=== PATIENT | female | born 1955 | race Caucasian/White ===

== ENCOUNTER 2020-08-13 08:24 | Outpatient (REF) | payer BC, MEDICARE, SELFPAY | END 2020-08-13 08:25 | disposition home or self-care (01) | LOC: HO.LAB 08:24 | PROVIDERS: PCP Internal Medicine Medical Oncology; Visit Provider Internal Medicine Medical Oncology | DX: Z20.828 Contact with and (suspected) exposure to other viral communicable diseases (principal) | CPT/HCPCS: C9803; U0003 ==

== ENCOUNTER 2022-03-27 09:06 | Outpatient (REF) | payer BC, MEDICARE, SELFPAY ==
--- NOTE | ~2022-03-27 | MR_ITS ---
MRI OF THE BRAIN WITH AND WITHOUT IV CONTRAST MRI OF THE ORBITS WITH AND WITHOUT IV CONTRAST MRA OF THE BRAIN WITHOUT IV CONTRAST MRV OF THE BRAIN WITHOUT IV CONTRAST INDICATION: Headache. 4th nerve palsy. COMPARISON: MRA head 02/11/2019 and MRI brain 01/28/2019. TECHNIQUE: Multiplanar multisequence MR imaging of the brain and orbits obtained without and following the administration of 5 mL of Gadavist without complication. Additionally, a noncontrast [id number] MRA and MRV of the head are obtained. Vascular post-processing, including 2-dimensional and 3-dimensional reformatted images were created and reviewed on an independent workstation under concurrent physician supervision. Stenoses are graded per criteria similar to NASCET. FINDINGS: BRAIN MRI: The previously identified tubular nodular focus of enhancement within the left paramesencephalic cistern I suspect most likely reflects a vein which is smaller in size on the current exam. No true enhancing mass lesions are identified. There is mild to moderate chronic microangiopathy. There is no hydrocephalus, extra-axial surface collection, or herniation. The major flow voids at the skull base are preserved. There is no acute infarct on diffusion-weighted imaging. There is no intracranial hemorrhage on the gradient recalled echo acquisition. The midline structures are normal. The cerebellar tonsils are normally positioned. The cerebellum and brainstem are normal. The craniocervical junction is normal. Osseous marrow signal intensity is homogenous. The imaged soft tissues including orbital soft tissues are normal. No pathologic enhancement or signal within the optic nerves. No intraorbital mass lesions. 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 No new aneurysms. No significant arterial stenoses in no acute arterial occlusions intracranially. HEAD MRV: Superficial and deep venous systems remain widely patent. There is no venous thrombosis. Hypoplastic left venous system. MR/MR head/brain wo/w con IMPRESSION: - The previously identified tubular nodular focus of enhancement within the left paramesencephalic cistern I suspect most likely reflects a vein which is smaller in size on the current exam. As on the previous study is not seen on the noncontrast MRA of the head and therefore is felt to not reflect an aneurysm. No true enhancing mass lesions are identified. There is mild to moderate chronic microangiopathy. 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
--- NOTE | ~2022-03-27 | MR_ITS ---
MRI OF THE BRAIN WITH AND WITHOUT IV CONTRAST MRI OF THE ORBITS WITH AND WITHOUT IV CONTRAST MRA OF THE BRAIN WITHOUT IV CONTRAST MRV OF THE BRAIN WITHOUT IV CONTRAST INDICATION: Headache. 4th nerve palsy. COMPARISON: MRA head 02/11/2019 and MRI brain 01/28/2019. TECHNIQUE: Multiplanar multisequence MR imaging of the brain and orbits obtained without and following the administration of 5 mL of Gadavist without complication. Additionally, a noncontrast [id number] MRA and MRV of the head are obtained. Vascular post-processing, including 2-dimensional and 3-dimensional reformatted images were created and reviewed on an independent workstation under concurrent physician supervision. Stenoses are graded per criteria similar to NASCET. FINDINGS: BRAIN MRI: The previously identified tubular nodular focus of enhancement within the left paramesencephalic cistern I suspect most likely reflects a vein which is smaller in size on the current exam. No true enhancing mass lesions are identified. There is mild to moderate chronic microangiopathy. There is no hydrocephalus, extra-axial surface collection, or herniation. The major flow voids at the skull base are preserved. There is no acute infarct on diffusion-weighted imaging. There is no intracranial hemorrhage on the gradient recalled echo acquisition. The midline structures are normal. The cerebellar tonsils are normally positioned. The cerebellum and brainstem are normal. The craniocervical junction is normal. Osseous marrow signal intensity is homogenous. The imaged soft tissues including orbital soft tissues are normal. No pathologic enhancement or signal within the optic nerves. No intraorbital mass lesions. 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 No new aneurysms. No significant arterial stenoses in no acute arterial occlusions intracranially. HEAD MRV: Superficial and deep venous systems remain widely patent. There is no venous thrombosis. Hypoplastic left venous system. MR/MR angio head wo con IMPRESSION: - The previously identified tubular nodular focus of enhancement within the left paramesencephalic cistern I suspect most likely reflects a vein which is smaller in size on the current exam. As on the previous study is not seen on the noncontrast MRA of the head and therefore is felt to not reflect an aneurysm. No true enhancing mass lesions are identified. There is mild to moderate chronic microangiopathy. 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
--- NOTE | ~2022-03-27 | MR_ITS ---
MRI OF THE BRAIN WITH AND WITHOUT IV CONTRAST MRI OF THE ORBITS WITH AND WITHOUT IV CONTRAST MRA OF THE BRAIN WITHOUT IV CONTRAST MRV OF THE BRAIN WITHOUT IV CONTRAST INDICATION: Headache. 4th nerve palsy. COMPARISON: MRA head 02/11/2019 and MRI brain 01/28/2019. TECHNIQUE: Multiplanar multisequence MR imaging of the brain and orbits obtained without and following the administration of 5 mL of Gadavist without complication. Additionally, a noncontrast [id number] MRA and MRV of the head are obtained. Vascular post-processing, including 2-dimensional and 3-dimensional reformatted images were created and reviewed on an independent workstation under concurrent physician supervision. Stenoses are graded per criteria similar to NASCET. FINDINGS: BRAIN MRI: The previously identified tubular nodular focus of enhancement within the left paramesencephalic cistern I suspect most likely reflects a vein which is smaller in size on the current exam. No true enhancing mass lesions are identified. There is mild to moderate chronic microangiopathy. There is no hydrocephalus, extra-axial surface collection, or herniation. The major flow voids at the skull base are preserved. There is no acute infarct on diffusion-weighted imaging. There is no intracranial hemorrhage on the gradient recalled echo acquisition. The midline structures are normal. The cerebellar tonsils are normally positioned. The cerebellum and brainstem are normal. The craniocervical junction is normal. Osseous marrow signal intensity is homogenous. The imaged soft tissues including orbital soft tissues are normal. No pathologic enhancement or signal within the optic nerves. No intraorbital mass lesions. 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 No new aneurysms. No significant arterial stenoses in no acute arterial occlusions intracranially. HEAD MRV: Superficial and deep venous systems remain widely patent. There is no venous thrombosis. Hypoplastic left venous system. MR/MR orbits face neck wo/w con IMPRESSION: - The previously identified tubular nodular focus of enhancement within the left paramesencephalic cistern I suspect most likely reflects a vein which is smaller in size on the current exam. As on the previous study is not seen on the noncontrast MRA of the head and therefore is felt to not reflect an aneurysm. No true enhancing mass lesions are identified. There is mild to moderate chronic microangiopathy. 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
== END 2022-03-27 09:07 | disposition home or self-care (01) ==
LOC: HO.MRI 09:06
PROVIDERS: Visit Provider Psychiatry & Neurology Neurology
DX: H49.10 Fourth [trochlear] nerve palsy, unspecified eye (principal); I67.1 Cerebral aneurysm, nonruptured
CPT/HCPCS: 70543; 70544; 70553; A9585

== ENCOUNTER 2023-09-03 08:53 | Outpatient (REF) | payer BC, SELFPAY | END 2023-09-03 08:54 | disposition home or self-care (01) | LOC: HO.CT 08:53 | PROVIDERS: PCP Internal Medicine Medical Oncology; Visit Provider Internal Medicine Medical Oncology | DX: R91.1 Solitary pulmonary nodule (principal) | CPT/HCPCS: 71260; 82565; Q9967 ==

== ENCOUNTER 2024-02-24 16:22 | Outpatient (REF) | payer BC, SELFPAY ==
[2024-02-24 17:50] LABS: Appearance Urine Clear; Color Urine Dark Yellow; Glucose Urine UA Negative (Negative); Leukocyte Esterase Urine Small (1+) (Negative); Nitrite Urine Positive (Negative); Specific Gravity - Urine 1.025 (1.005-1.025); UMIC TRIGGER UA YES; Urine Blood Negative (Negative); Urine Ketones Negative (Negative); Urine Protein Trace mg/dL (Neg-Trace)
[2024-02-24 18:05] LABS: Bacteria Urine None Seen (None Seen); Hyaline Casts Urine 0-2 /LPF (0-2); RBC Urine 0-2 /HPF (0-2); Squamous Epithelial Cell Urine 0-2 /HPF (0-2); WBC Urine 0-5 /HPF (0-5)
== END 2024-02-24 16:23 | disposition home or self-care (01) ==
LOC: HO.LAB 16:22
PROVIDERS: PCP Internal Medicine Medical Oncology; Visit Provider Internal Medicine Medical Oncology
DX: R39.9 Unspecified symptoms and signs involving the genitourinary system (principal)
CPT/HCPCS: 81001; 87086

== ENCOUNTER 2024-10-07 09:22 | Emergency (ER) | payer BC, SELFPAY ==
--- NOTE | ~2024-10-07 | CT_ITS ---
EXAMINATION: CT HEAD WITHOUT CONTRAST (STROKE PROTOCOL) CLINICAL INFORMATION: Stroke protocol. Facial droop. Weakness. COMPARISON: December 23, 2018 TECHNIQUE: Contiguous axial imaging was performed from the skull base to vertex without intravenous administration of contrast. This CT examination was performed using dose optimization techniques as appropriate, variously including the following: *Automated exposure control *Adjustment of mA and/or kV according to patient size (this includes techniques or standardized protocols for targeted exams where dose is matched to indication/reason for exam; i.e. extremities or head) *Use of iterative reconstruction technique DLP: 676 mGy centimeter. FINDINGS: No acute intracranial hemorrhage, mass effect, midline shift, hydrocephalus or herniation. Bilateral multifocal patchy and confluent deep periventricular white matter hypodensities involving centrum semiovale and christianson radiata both hemispheres and questionable in the arline. Old lacunar infarcts in the basal ganglia and extracapsular. Calcified plaques in the V4 segments of the vertebral arteries and cavernous supraclinoid segments both ICA. Retention cysts versus polyp in the left maxillary sinus, medial wall near the ostiomeatal complex. Tympanic cavities and mastoid air cells are aerated. CT/CT head for STROKE IMPRESSION: No acute intracranial hemorrhage. White matter disease likely related to small vessel occlusive disease. Superimposed acute stroke/nonhemorrhagic ischemia cannot be excluded. This critical result was discussed with the emergency physician Dr. Stanley Flores at 9:30 AM hours on October 07, 2024.. It was ascertained that the content and urgency of the report was understood at the time of direct communication. Electronically signed by: Lui Landa MD 10/07/2024 09:41 AM [facility]
--- NOTE | ~2024-10-07 | XR_ITS ---
EXAMINATION: XR CHEST CLINICAL INFORMATION: Weakness, rule out pneumonia COMPARISON: CT chest 09/03/2023 TECHNIQUE: Frontal view of the chest was obtained. FINDINGS: Cardiac, hilar, and mediastinal contours are normal. Lungs are clear bilaterally. Mild biapical scarring is noted. No effusion or pneumothorax. No focal osseous or soft tissue abnormalities. XR/XR chest 1V IMPRESSION: No active pulmonary disease. Electronically signed by: Kael Muniz MD 10/07/2024 10:36 AM [facility]
--- NOTE | ~2024-10-07 | CT_ITS ---
EXAMINATION: CT HEAD NECK ANGIOGRAPHY WITH IV CONTRAST STROKE HISTORY: Weakness, facial droop, rule out clot COMPARISON: Correlation is made with the unenhanced head CT performed immediately prior and with an MR angiogram of the head and neck dated 03/27/2022. TECHNIQUE: Helical axial images were obtained from the aortic arch to the vertex after intravenous injection of contrast per standard departmental protocol. MIP/3D reconstructions were obtained and reviewed. One or more of the following techniques was used for dose reduction: Automated exposure control, adjustment of the mA and/or kV according to patient size, use of iterative reconstruction technique. DLP: 694 mGy-cm FINDINGS: CTA NECK: AORTIC ARCH: The visualized portions of the arch as well as innominate, right subclavian, and left subclavian arteries show no hemodynamically significant stenosis. Right common carotid artery: There is no large vessel occlusion or hemodynamically significant stenosis. Right internal carotid artery: There is calcified and noncalcified plaque at the carotid bulb. There is no large vessel occlusion or hemodynamically significant stenosis. Left common carotid artery: There is no large vessel occlusion or hemodynamically significant stenosis. Left internal carotid artery: There is no large vessel occlusion or hemodynamically significant stenosis. (Extracranial internal carotid artery stenosis estimates are based on use of distal ICA as the denominator.) Right vertebral artery: There is no large vessel occlusion or hemodynamically significant stenosis. Left vertebral artery: There is marked calcification of the distal left vertebral artery at the skull base. A significant stenosis is not excluded. Additional narrowing is seen at the level of the medulla. CTA HEAD: Right intracranial ICA: There is no large vessel occlusion, hemodynamically significant stenosis, or aneurysm. Right STUART: There is no large vessel occlusion, hemodynamically significant stenosis, or aneurysm. Right MCA: There is no large vessel occlusion, hemodynamically significant stenosis, or aneurysm. Left intracranial ICA: There is no large vessel occlusion, hemodynamically significant stenosis, or aneurysm. Left STUART: There is no large vessel occlusion, hemodynamically significant stenosis, or aneurysm. Left MCA: There is no large vessel occlusion, hemodynamically significant stenosis, or aneurysm. Basilar artery: There is no large vessel occlusion, hemodynamically significant stenosis, or aneurysm. Superior cerebellar arteries: There is no large vessel occlusion, hemodynamically significant stenosis, or aneurysm. Right CUSTOMER SERVICE SALES ASSOCIATE: There is no large vessel occlusion, hemodynamically significant stenosis, or aneurysm. Left CUST[employer]ER SERVICE SALES ASSOCIATE: There is no large vessel occlusion, hemodynamically significant stenosis, or aneurysm. VEINS: Venous enhancement is within normal limits for this technique. SOFT TISSUES: The bilateral parotid, submandibular, and thyroid glands are unremarkable. No laryngeal abnormality is identified. There is no cervical lymphadenopathy. CT/CT angio head neck STROKE IMPRESSION: Marked calcification of the distal left vertebral artery. Significant stenosis in this region cannot be excluded. Otherwise, no large vessel occlusion, hemodynamically significant stenosis, or aneurysm in the head and neck. Electronically signed by: Des Washington MD 10/07/2024 10:06 AM [facility]
[2024-10-07 09:22] VITALS: BMI 21.5
--- NOTE | 2024-10-07 09:27 | ED.WEAKNESS ---
HPI - Weakness General Chief complaint: Stroke Stated complaint: STROKE ALERT PER EMS Time Seen by Provider: 10/07/24 09:27 Source: patient and EMS Mode of arrival: EMS Limitations: no limitations History of Present Illness ED Provider: Dr. Stanley Flores HPI Narrative: 68-year-old female with a history hypertension, brain tumor, left posterior vertebral artery stenosis with possible clots who presents emergency department for evaluation of dizziness, nausea, vomiting, weakness. Patient states that she became ill last night when she developed a ?chest cold . Patient states that since last night she was had fever, chills, nonproductive cough, shortness of breath, dyspnea on exertion, nausea, vomiting x2 with no diarrhea. She states she was feeling weak this morning but did go to work. According to the paramedics the patient went to the bathroom since she had dizziness and nausea. She was then found lying on the bathroom floor by coworkers. Paramedics thought that the patient may have had a left facial droop and the patient was brought to emergency department as a stroke alert. I initially evaluated the patient on the senior linux systems engineer stretcher. The patient has generalized weakness. She was slow to answer questions but does answer them appropriately. She was oriented to person, place, knew the month and her age. The patient's , Cristi is here in the emergency department and he states that he just got over the flu.Yet the likes to read it Related Data Previous Rx's ?Medication ?Instructions ?Recorded ondansetron 4 mg disintegrating 4 mg PO Q6-8H PRN nausea and 10/07/24 tablet vomiting #14 tabs oseltamivir 75 mg capsule (Tamiflu) 75 mg PO Q12H 5 days #10 caps 10/07/24 Allergies Allergy/AdvReac Type Severity Reaction Status Date / Time meperidine [From DEMEROL] Allergy Intermediate VOMIT Verified 10/07/24 09:41 Review of Systems Review of Systems: Yes all other systems are reviewed and are negative [facility] Past Medical History [facility] Narrative: Social history: She was . Her , Cristi is here in the emergency department with her. Social History Social History Smoked in Last 30 Days: No Use of substances other than those prescribed or required for medical reasons: No Advance Directives: No Advance Directives Information Provided: Yes Do you have a plan to hurt others: No Plan Physical Exam Vital Signs: Vital Signs: Last Vital Signs Temp 98.4 F 10/07/24 09:52 Pulse 74 10/07/24 09:52 Resp 16 10/07/24 09:52 BP 148/80 H 10/07/24 09:52 Pulse Ox 95 10/07/24 09:52 O2 Del Method Room Air 10/07/24 09:52 BMI result Body Mass Index 21.5 Vital signs revealed an elevated blood pressure of 140/80 otherwise unremarkable Exam: General: Awake, appears weak, slow to answer questions but answers them appropriately Head: Normocephalic, atraumatic EENT: PERRL, Lids normal, sclera normal, conjunctiva normal, nose normal , ears normal, throat without erythema or exudates Neck: Supple, no adenopathy Lung: breath sounds symmetric, no wheezing, rales or rhonchi Chest: symmetric movement, nontender Heart: regular rate and rhythm, normal S1, S2 no murmurs or rubs Abdomen: soft, non-tender, nondistended, normal bowel sounds Back: no vertebral tenderness, no CVAT Extremities: no deformities, moves all extremities symmetrically but he was very weak and has difficulty holding her arms and legs up against gravity Neuro: Awake, oriented to person, place, year, age, slow but comprehensible speech, cranial nerves intact, moves all extremities symmetrically Psych: Pleasant, cooperative NIH Stroke Scale Internal: Initial- Upon Arrival Level of Consciousness: Alert Level of Consciousness Questions: Answers both questions correctly Level of Consciousness Commands: Performs both tasks correctly Best Gaze: Normal Visual: No visual loss Facial Palsy: Normal Motor Arm (Right): Some effort against gravity Motor Arm (Left): Some effort against gravity Motor Leg (Right): Some effort against gravity Motor Leg (Left): Some effort against gravity Limb Ataxia: Absent Sensory: Normal Best Language: No aphasia Dysarthia: Normal Extinction and Inattention: No abnormality Score: 8 Medications Administered Discontinued Medications Generic Name Dose Route Start Last Admin Trade Name Freq PRN Reason Stop Dose Admin Sodium Chloride 1,000 mls @ 999 mls/hr 10/07/24 11:34 10/07/24 12:10 Ns IV 10/07/24 12:34 999 mls/hr .Q1H1M STA Administration Iohexol 100 ml 10/07/24 09:53 10/07/24 09:53 Iohexol 350 Mg/Ml 100 Ml Infus..Btl IV 10/07/24 09:54 70 ml ONCE ONE Administration Ketorolac Tromethamine 15 mg 10/07/24 11:34 10/07/24 12:09 Ketorolac Tromethamine 15 Mg/Ml Vial IVPUSH 10/07/24 11:35 15 mg ONCE STA Administration Ondansetron HCl 4 mg 10/07/24 11:34 10/07/24 12:09 Ondansetron Hcl 4 Mg/2 Ml Vial IVPUSH 10/07/24 11:35 4 mg ONCE ONE Administration Oseltamivir Phosphate 75 mg 10/07/24 11:34 10/07/24 12:09 Oseltamivir Phosphate 75 Mg Capsule PO 10/07/24 11:35 75 mg ONCE ONE Administration Medical Decision Making Medical Decision Making [facility] Narrative: 68-year-old female with a history hypertension, brain tumor, left posterior vertebral artery stenosis with 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 Paramedics were concerned that the patient may have had a left facial droop and the patient was made a stroke alert. I did evaluate the patient is seen in his she arrived in the emergency department, patient had no obvious facial droop that I could see and had generalized weakness. Vital signs were normal. Differential diagnosis: ?Includes but is not limited to stroke, intracranial bleed, TIA, myocardial infarction, myocardial ischemia, viral syndrome, COVID-19, influenza, RSV, electrolyte abnormalities, anemia Course: 14:23 My interpretation patient's laboratory evaluation is as follows: WBC elevated 14,200. Normocytic anemia with an H&H of 12 and 35. Sodium low 135. Bicarb low 21. BUN elevated 18. Glucose elevated 146. LFTs were normal. Troponin was below detectable limits. COVID and RSV were negative. Influenza was positive. CT scan of the brain did not reveal any acute findings. CT angiogram of the head and neck did reveal left vertebral artery calcified stenosis which is a known condition for this patient. The patient is NIH stroke scale was 8 but mainly secondary to generalized weakness. At this time I do not think that the patient was had a stroke in his not a TNK candidate. The patient does have a positive influenza test then this is the most likely cause of her symptoms. She was treated with normal saline 1 L IV, Toradol 15 mg IV Zofran 4 mg IV and Tamiflu 75 mg orally. She was feeling significantly better. She was able to eat crackers and drink catalina setfany without any difficulty. Admission/Observation Consideration of admission/observation: Escalation of care including admission/observation considered (Yes) Lab Data MDM Lab Attestation statement: I reviewed the patient's lab results. 10/07/24 09:35 10/07/24 09:36 Labs: Lab Results 10/07/24 10/07/24 10/07/24 Range/Units :25 09:26 09:35 WBC 14.2 H (4.8-10.8) X10*3/uL RBC 3.94 L (4.20-5.50) X10*6/uL Hgb 12.0 (12.0-16.0) g/dl Hct 35.4 L (37.0-47.0) % MCV 89.8 (80.0-98.0) fL MCH 30.5 (27.0-33.0) pg MCHC 33.9 (31.0-35.0) g/dl RDW 13.0 (11.0-16.0) % Plt Count 273 (160-400) X10*3/uL MPV 9.5 (9.4-12.3) fL Immature Gran % (Auto) 0.6 H (0.0-0.4) % Neut % (Auto) 89.0 H (45-73) % Lymph % (Auto) 3.4 L (20-40) % [place] % (Auto) 6.5 (2-11) % Eos % (Auto) 0.1 (0-4) % Baso % (Auto) 0.4 (0-2) % Lymph # (Auto) 0.5 L (1.2-4.9) X10*3/uL [place] # (Auto) 0.9 (0.1-1.2) X10*3/uL Eos # (Auto) 0.0 (0.0-0.4) X10*3/uL Baso # (Auto) 0.1 (0.0-0.2) X10*3/uL Abs Immat Gran (auto) 0.08 H (0.00-0.03) X10*3/uL Absolute Neuts (auto) 12.6 H (2.0-8.3) x10*3/uL Absolute Nucleated RBC 0.000 (0.0-0.012) X10*3/uL Nucleated RBC % (auto) 0.0 (0.0-0.2) /100WBC PT 11.7 (10.9-12.4) SEC Whole Blood PT 11.8 (11.1-13.5) sec INR 1.0 (0.9-1.1) Whole Blood INR 1.0 (0.9-1.1) APTT 24.7 L (26.0-36.8) SEC Sodium (135-145) mmol/L Potassium (3.3-5.1) mmol/L Chloride (96-108) mmol/L Carbon Dioxide (22-29) mmol/L Anion Gap (12-20) BUN (9-16) mg/dL Creatinine (0.5-1.4) mg/dL Estim Creat Clear Calc Estimated GFR POC Glucose 142 H (60-115) mg/dL Random Glucose (60-115) mg/dL Calcium (8.4-10.2) mg/dL Total Bilirubin (0.0-1.0) mg/dL Direct Bilirubin (0.0-0.5) mg/dL AST (5-31) U/L ALT (0-31) U/L Alkaline Phosphatase (39-117) U/L Troponin I High Sens (<3.5-17.0) ng/L Total Protein (6.5-8.0) g/dL Albumin (3.5-5.0) g/dL Triglycerides (<150) mg/dL Cholesterol (<200) mg/dL LDL Cholesterol, Calc (<100) mg/dL HDL Cholesterol (>40) mg/dL Lipase (8-78) U/L Ethyl Alcohol mg/dL Influenza Type A (PCR) (Negative) Influenza Type B (PCR) (Negative) RSV RNA Qual (PCR) (Negative) SARS-CoV-2 RNA (RT-PCR) (Negative) 10/07/24 10/07/24 Range/Units 09:36 10:01 WBC (4.8-10.8) X10*3/uL RBC (4.20-5.50) X10*6/uL Hgb (12.0-16.0) g/dl Hct (37.0-47.0) % MCV (80.0-98.0) fL MCH (27.0-33.0) pg MCHC (31.0-35.0) g/dl RDW (11.0-16.0) % Plt Count (160-400) X10*3/uL MPV (9.4-12.3) fL Immature Gran % (Auto) (0.0-0.4) % Neut % (Auto) (45-73) % Lymph % (Auto) (20-40) % [place] % (Auto) (2-11) % Eos % (Auto) (0-4) % Baso % (Auto) (0-2) % Lymph # (Auto) (1.2-4.9) X10*3/uL [place] # (Auto) (0.1-1.2) X10*3/uL Eos # (Auto) (0.0-0.4) X10*3/uL Baso # (Auto) (0.0-0.2) X10*3/uL Abs Immat Gran (auto) (0.00-0.03) X10*3/uL Absolute Neuts (auto) (2.0-8.3) x10*3/uL Absolute Nucleated RBC (0.0-0.012) X10*3/uL Nucleated RBC % (auto) (0.0-0.2) /100WBC PT (10.9-12.4) SEC Whole Blood PT (11.1-13.5) sec INR (0.9-1.1) Whole Blood INR (0.9-1.1) APTT (26.0-36.8) SEC Sodium 131 L (135-145) mmol/L Potassium 3.6 (3.3-5.1) mmol/L Chloride 102 (96-108) mmol/L Carbon Dioxide 21 L (22-29) mmol/L Anion Gap 12 (12-20) BUN 18 H (9-16) mg/dL Creatinine 0.70 (0.5-1.4) mg/dL Estim Creat Clear Calc 67.2 Estimated GFR > 60 POC Glucose (60-115) mg/dL Random Glucose 146 H (60-115) mg/dL Calcium 9.6 (8.4-10.2) mg/dL Total Bilirubin 0.9 (0.0-1.0) mg/dL Direct Bilirubin 0.2 (0.0-0.5) mg/dL AST 24 (5-31) U/L ALT 7 (0-31) U/L Alkaline Phosphatase 49 (39-117) U/L Troponin I High Sens < 2.7 (<3.5-17.0) ng/L Total Protein 7.0 (6.5-8.0) g/dL Albumin 4.1 (3.5-5.0) g/dL Triglycerides 97 (<150) mg/dL Cholesterol 233 H (<200) mg/dL LDL Cholesterol, Calc 162 H (<100) mg/dL HDL Cholesterol 52 (>40) mg/dL Lipase 15 (8-78) U/L Ethyl Alcohol < 10 mg/dL Influenza Type A (PCR) POSITIVE A (Negative) Influenza Type B (PCR) NEGATIVE (Negative) RSV RNA Qual (PCR) NEGATIVE (Negative) SARS-CoV-2 RNA (RT-PCR) NEGATIVE (Negative) Independent Interpretation I performed an independent interpretation of an: EKG and Plain X-Ray Interpretation: My interpretation patient's 12 EKG is as follows: Normal sinus rhythm with a rate of 70, normal AK interval, QRS duration QTC interval, no ST segment elevation, no ST segment depression, no PACs, no PVCs, no significant T-wave abnormalities My independent interpretation patient's chest x-ray is as follows: No acute infiltrates noted Radiology Impression Discussion of test interpretation with radiology: I have reviewed the radiologist's reading. Radiologist Impression: XR CHEST CLINICAL INFORMATION: Weakness, rule out pneumonia COMPARISON: CT chest 09/03/2023 TECHNIQUE: Frontal view of the chest was obtained. FINDINGS: Cardiac, hilar, and mediastinal contours are normal. Lungs are clear bilaterally. Mild biapical scarring is noted. No effusion or pneumothorax. No focal osseous or soft tissue abnormalities. IMPRESSION: No active pulmonary disease. Electronically signed by: Kael Muniz MD 10/07/2024 10:[address] head for STROKE IMPRESSION: No acute intracranial hemorrhage. White matter disease likely related to small vessel occlusive disease. Superimposed acute stroke/nonhemorrhagic ischemia cannot be excluded. This critical result was discussed with the emergency physician Dr. Stanley Flores at 9:30 AM hours on October 07, 2024.. It was ascertained that the content and urgency of the report was understood at the time of direct communication. Electronically signed by: Lui Landa MD 10/07/2024 09:[address] angio head neck STROKE IMPRESSION: Marked calcification of the distal left vertebral artery. Significant stenosis in this region cannot be excluded. Otherwise, no large vessel occlusion, hemodynamically significant stenosis, or aneurysm in the head and neck. Electronically signed by: Des Washington MD 10/07/2024 10:06 AM EST Independent Historian Clinical information obtained from an independent historian. History obtained from or confirmed by: Spouse and EMS Prescription Management I considered prescription management with: Antiviral (Tamiflu) and Other (Antiemetic: Zofran) Chronic Conditions Patient?s care impacted by: Hypertension Discharge Plan Discharge Clinical Impression: Influenza A, Weakness, Nausea & vomiting Patient Disposition: Home, Self-Care Instructions: Influenza (ED) Additional Instructions: Your blood work was unremarkable Your chest x-ray revealed no evidence of pneumonia. Your COVID-19 and RSV tests were negative. Your flu test was positive for influenza A. Your weakness and symptoms are all caused by the flu. Take ibuprofen 200 mg pills, 2 pills every 6 hours as needed for pain or fever. Take Tylenol (acetaminophen) 500 mg pills, 2 pills every 6 hours as needed for pain or fever. Take Zofran ODT 4 mg pills, 1 pill dissolved in your mouth every 8 hours as needed for nausea and vomiting. Take Tamiflu 75 mg, 1 pill every 12 hours for 5 days. For the next 24 hours, stay on a MALCOLM diet (bananas, rice, applesauce, tea and toast). Follow-up with your doctor in 2 days. Please return to the emergency department if your symptoms get worse or if you develop any symptoms that are concerning to you. Prescriptions: New ondansetron 4 mg tablet,disintegrating 4 mg PO Q6-8H PRN (Reason: nausea and vomiting) Qty: 14 0RF oseltamivir [Tamiflu] 75 mg capsule 75 mg PO Q12H 5 Days Qty: 10 0RF Print Language: Urdu
--- NOTE | 2024-10-07 09:28 | PC.NURSE ---
Pt. in CT scan at this time.
--- NOTE | 2024-10-07 09:29 | ECG_ITS ---
Test Reason : STROKE SYMPTOMS Blood Pressure : */* mmHG Vent. Rate : 70 BPM Atrial Rate : 70 BPM P-R Int : 172 ms QRS Dur : 92 ms QT Int : 420 ms P-R-T Axes : 68 25 61 degrees QTcB Int : 453 ms Normal sinus rhythm Nonspecific T wave changes Abnormal ECG When compared with ECG of 27-Mar-2003 15:50, Nonspecific T wave abnormality now evident in Anterior leads Referred By: Stanley Flores Electronically Signed By: Jhon William
[2024-10-07 09:33] LABS: Prothrombin Time Whole Bld POC 11.8 sec (11.1-13.5)
[2024-10-07 09:34] LABS: Glucose, Whole Blood 142 mg/dL (60-115)
[2024-10-07 09:42] LABS: MANUAL DIFF FLAG NO
--- NOTE | 2024-10-07 09:45 | PC.NURSE ---
In ED room 20
[2024-10-07 09:47] LABS: Basophils Absolute Auto 0.1 X10*3/uL (0.0-0.2); Basophils Percent Auto 0.4 % (0-2); Eosinophils Percent Auto 0.1 % (0-4); Hematocrit 35.4 % (37.0-47.0); Imm Gran Abs Auto 0.08 X10*3/uL (0.00-0.03); Imm Gran Pct Auto 0.6 % (0.0-0.4); Lymphocytes Absolute Auto 0.5 X10*3/uL (1.2-4.9); Lymphocytes Percent Auto 3.4 % (20-40); Mean Corpuscular HGB Conc 33.9 g/dl (31.0-35.0); Mean Corpuscular Hemoglobin 30.5 pg (27.0-33.0); Mean Corpuscular Volume 89.8 fL (80.0-98.0); Mean Platelet Volume 9.5 fL (9.4-12.3); Monocytes Absolute Auto 0.9 X10*3/uL (0.1-1.2); Monocytes Percent Auto 6.5 % (2-11); Neutrophils Absolute Auto 12.6 x10*3/uL (2.0-8.3); Platelet Count 273 X10*3/uL (160-400); Red Blood Count 3.94 X10*6/uL (4.20-5.50); White Blood Count 14.2 X10*3/uL (4.8-10.8)
[2024-10-07 09:50] LABS: Prothrombin Time 11.7 SEC (10.9-12.4)
[2024-10-07 09:52] VITALS: BP 148/80; PULSE 74; RESP 16; TEMP 36.9; O2SAT 95
[2024-10-07 09:52] LABS: Partial Thromboplastin Time 24.7 SEC (26.0-36.8)
[2024-10-07 09:53] LABS: Stroke Lab Use COMPLETE
[2024-10-07] MEDS: iohexoL 350 MG/ML 100 ML INFUS..BTL IV (09:53)
--- NOTE | 2024-10-07 10:07 | MHC.STROKE ---
Called to ED for stroke alert Upon arrival, patient in room 20, CT scans completed. Spoke with Dr. Flores who feels this is more of an infectious process. recently had the FLU. reports that patient has a history of a brain tumor and she goes to [facility] for appointments unable to elaborate on what type of tumor or where it is. He only states they can't operate on it Pt presents with general weakness. No definite facial droop appreciated. weak bilaterally. Stroke Education discussed, risk factors reviewed: med hx, medications, diet, activity. Pt does not smoke or drink per . Pamphlet provided. Will continue to assist as needed.
[2024-10-07 10:20] LABS: Alanine Aminotransferase 7 U/L (0-31); Albumin Level 4.1 g/dL (3.5-5.0); Alkaline Phosphatase 49 U/L (39-117); Aspartate Amino Transferase 24 U/L (5-31); Bilirubin Direct 0.2 mg/dL (0.0-0.5); Bilirubin Total 0.9 mg/dL (0.0-1.0); Blood Urea Nitrogen 18 mg/dL (9-16); Calcium 9.6 mg/dL (8.4-10.2); Carbon Dioxide 21 mmol/L (22-29); Chloride 102 mmol/L (96-108); Cholesterol 233 mg/dL (<200); Creatinine Clr Calc Pharmacy 67.2; Estimated Glomerular Filt Rate > 60; Ethanol < 10 mg/dL; Glucose Random 146 mg/dL (60-115); HDL Cholesterol 52 mg/dL (>40); LDL Cholesterol Calculated 162 mg/dL (<100); Lipase 15 U/L (8-78); Potassium 3.6 mmol/L (3.3-5.1); Sodium 131 mmol/L (135-145); Triglycerides 97 mg/dL (<150)
[2024-10-07 10:21] LABS: Troponin-I High Sensitivity < 2.7 ng/L (<3.5-17.0)
[2024-10-07 10:51] LABS: Influenza A PCR POSITIVE (Negative); Influenza B PCR NEGATIVE (Negative); Resp Syncy Virus RNA Qual PCR NEGATIVE (Negative); SARS COV2 PCR INHOUSE NEGATIVE (Negative)
[2024-10-07 11:03] LABS: Anion Gap 12 (12-20)
--- OUTSIDE RECORDS SUMMARY | 2024-10-07 11:28 | XMS_ITS ---
Author Organization Des Owens III, MD Address [address] [place] [address] Care Team Providers Care Ice Cream Man Name Role Phone Des Owens Primary Care Provider REASON FOR VISIT Rx Request UTI Social History Sex Assigned At : Social History Observation Description Sex Assigned At Female Encounters Encounter Location Date Provider Diagnosis Des Owens III, MD [address] [place] [address] [place] [address] 07/13/2024 Des Owens Plan Of Treatment Next Appt Details Provider Name:Des Owens, 11/18/2024 02:30:00 PM, [address] [place] [address] [place], [address], Progress Notes * Julianna HARLEYDOB:1955 (68 yo F)Acc No.[id number]:07/13/2024 Patient:?Julianna HARLEY :1955???Age:68 Y???Sex:Female Address:[address], [address] * true * Date:? Generated for Printi ng/Faxing/eTransmitting on:?10/07/2024 11:28 AM EST
--- OUTSIDE RECORDS SUMMARY | 2024-10-07 11:28 | XMS_ITS ---
Author Organization Des Owens III, MD Address [address] [place] [address] Care Team Providers Care Business Law Instructor Name Role Phone Des Owens Primary Care Provider REASON FOR VISIT Refills Social History Sex Assigned At : Social History Observation Description Sex Assigned At Female Encounters Encounter Location Date Provider Diagnosis Des Owens III, MD [address] [place] [address] [place] [address] 07/13/2024 Des Owens Plan Of Treatment Next Appt Details Provider Name:Des Owens, 11/18/2024 02:30:00 PM, [address] [place] [address] [place], [address], Progress Notes * Julianna HARLEYDOB:1955 (68 yo F)Acc No.[id number]:07/13/2024 Patient:?Julianna HARLEY :1955???Age:68 Y???Sex:Female Address:[address] [place], [address] * true * Date:? Generated for Printi ng/Faxing/eTransmitting on:?10/07/2024 11:27 AM EST
--- OUTSIDE RECORDS SUMMARY | 2024-10-07 11:28 | XMS_ITS ---
Author Organization Des Owens III, MD Address [address] [place] [address] Care Team Providers Care Hat And Cap Opener Name Role Phone Des Owens Primary Care Provider Medications Medication SIG (Take, Route, Fr equency, Duration) Notes Start Date End Date Status Bactrim DS 800-160 MG 1 tablet Orally tw ice a day for 10 days 07/13/2024 07/23/2024 Active Social History Sex Assigned At : Social History Observation Description Sex Assigned At Female Encounters Encounter Location Date Provider Diagnosis Des Owens III, MD [address] [place] [address] [place] [address] 07/13/2024 Des Owens Plan Of Treatment Medication Medication Name Sig Start Date Stop Date Notes Bactrim DS 800-160 MG 1 tablet Orally tw ice a day for 10 days 07/13/2024 07/23/2024 Next Appt Details Provider Name:Des Owens, 11/18/2024 02:30:00 PM, [address] [place] [address] [place], [address], Progress Notes * Julianna HARLEYDOB:1955 (68 yo F)Acc No.[id number]:07/13/2024 Patient:?Julianna HARLEY :1955???Age:68 Y???Sex:Female Address:[address] [place] [address], [place], [address] * Refills? Start Bactrim DS Tablet, 800-160 MG, Orally, 20 Tablet, 1 tablet, twice a day, 10 days, Refills=0 * true * Date:? Generated for Daniella matta/Alvaro/eTransmitting on:?10/07/2024 11:28 AM EST
[2024-10-07] MEDS: Ketorolac Tromethamine 15 MG/ML VIAL IVPUSH (12:09)
[2024-10-07] MEDS: ondansetron HCL 4 MG/2 ML VIAL IVPUSH (12:09)
[2024-10-07] MEDS: Oseltamivir Phosphate 75 MG CAPSULE PO (12:09)
[2024-10-07] MEDS: 0.9 % Sodium Chloride 1,000 ML 999 ML IV (12:10)
[2024-10-07 15:01] VITALS: BP 111/60; PULSE 59; RESP 18; TEMP 36.9; O2SAT 95
== END 2024-10-07 15:02 | disposition home or self-care (01) ==
PROVIDERS: Emergency Provider Emergency Medicine Emergency Medical Services; PCP Internal Medicine Medical Oncology
DX: J10.1 Influenza due to other identified influenza virus with other respiratory manifestations (principal); R11.2 Nausea with vomiting, unspecified; R29.810 Facial weakness; R94.31 Abnormal electrocardiogram [ECG] [EKG]; R42 Dizziness and giddiness; R29.708 NIHSS score 8; R53.1 Weakness; Z03.818 Encounter for observation for suspected exposure to other biological agents ruled out; Z79.899 Other long term (current) drug therapy
CPT/HCPCS: 0241U; 36415; 70450; 70496; 70498; 71045; 80048; 80061; 80076; 80307; 82947; 83690; 84484; 85025; 85610; 85730; 87040; 93005; 96361; 96374; 96375; 99284; 99285; J1885; J2405; Q9967

== ENCOUNTER → 2024-10-07 09:28 | Outpatient (BNV) | payer BC, SELFPAY | PROVIDERS: Emergency Provider Emergency Medicine Emergency Medical Services; PCP Internal Medicine Medical Oncology; Visit Provider Radiology Diagnostic Radiology | DX: I65.02 Occlusion and stenosis of left vertebral artery (principal); R53.1 Weakness; R29.810 Facial weakness; R05.9 Cough, unspecified | CPT/HCPCS: 70450; 70496; 70498; 71045 ==

== ENCOUNTER → 2024-10-07 09:29 | Outpatient (BNV) | payer BC, SELFPAY | PROVIDERS: Emergency Provider Emergency Medicine Emergency Medical Services; PCP Internal Medicine Medical Oncology; Visit Provider Internal Medicine Cardiovascular Disease | DX: R94.31 Abnormal electrocardiogram [ECG] [EKG] (principal); I63.9 Cerebral infarction, unspecified | CPT/HCPCS: 93010 ==